=== PATIENT | male | born 1995 | race African-American/Black ===

== ENCOUNTER 2018-08-21 18:11 | Emergency (ER) | payer MEDICAID ==
[~2018-08-21] VITALS: Ht 170.2 cm; Wt 61.2 kg
[~2018-08-21 18:11] MED LIST: AMOXICILLIN500 MG ORAL; IBUPROFEN600 MG ORAL; NKM
[2018-08-21 18:30] VITALS: BP 101/64
[2018-08-21] MEDS ORDERED: Dicyclomine HCl 10mg/5ml oral soln ORAL ONE (19:00)
[2018-08-21] MEDS ORDERED: Mylanta II UD 30ml ORAL ONE (19:00)
[2018-08-21] MEDS ORDERED: Lidocaine 2% Visc 15ml soln ORAL ONE (19:00)
--- NOTE | 2018-08-21 19:04 | NUR ---
ED Nurse Note: Patient walked in to ER with friend due to N/V since 299 he drank alcohol. pt aao x4 and ambulatory. no N/V at this moment but pt c/o weakness due to vomiting since 299. skin clean and intact. calm and cooperative.
[2018-08-21] MEDS ORDERED: ONDANSETRON ODT4 MG BC (19:14)
[2018-08-21] MEDS ORDERED: RANITIDINE HCL150 MG ORAL (19:14)
[2018-08-21] MEDS ORDERED: DICYCLOMINE HCL10 MG ORAL (19:14)
[2018-08-21 19:19] VITALS: BP 124/78
--- NOTE | 2018-08-21 19:21 | NUR ---
ER DISCHARGE NOTE: Patient is cleared to be discharged per ERMD, pt is aox4, accompanied by girlfriend, on room air, with stable vital signs. pt was given dc and prescription instructions, pt was able to verbalize understanding, pt id band removed. pt is able to ambulate with steady gait. pt took all belongings.
--- NOTE | 2018-08-21 21:07 | Emergency Room Report ---
History of Present Illness General Chief Complaint: Nausea, Vomiting, and Diarrhea Source: Patient Present Illness HPI 22-year-old M presents ED for evaluation. Complaining of abdominal pain with vomiting and diarrhea which started early this morning. States he was drinking alcohol all day yesterday. Pain is cramping, 5 out of 10, nonradiating. Multiple episodes of vomiting and diarrhea. Denies any recent travel or recent antibiotic use. No other aggravating relieving factors. Denies any other associated symptoms Allergies: Coded Allergies: No Known Allergies (Unverified , 06/15/13) Patient History Past Medical History: none Past Surgical History: none Pertinent Family History: none Social History: Denies: smoking, alcohol use, drug use Immunizations: UTD Reviewed Nursing Documentation: PMH: Agreed; PSxH: Agreed Nursing Documentation-PMH Past Medical History: No Stated History Review of Systems All Other Systems: negative except mentioned in HPI Physical Exam Vital Signs Date Time Temp Pulse Resp B/P (MAP) Pulse Ox O2 Delivery O2 Flow Rate FiO2 08/21/18 18:29 99.5 61 18 96 Room Air 08/21/18 18:30 101/64 Sp02 EP Interpretation: reviewed, normal General Appearance: no apparent distress, alert, GCS 15, non-toxic Head: normocephalic, atraumatic Eyes: bilateral eye normal inspection, bilateral eye PERRL ENT: hearing grossly normal, normal pharynx, no angioedema, normal voice Neck: full range of motion, supple/symm/no masses Respiratory: chest non-tender, lungs clear, normal breath sounds, speaking full sentences Cardiovascular #1: regular rate, rhythm, no edema Cardiovascular #2: 2+ carotid (R), 2+ carotid (L), 2+ radial (R), 2+ radial (L) , 2+ dorsalis pedis (R), 2+ dorsalis pedis (L) Gastrointestinal: normal bowel sounds, non tender, soft, non-distended, no guarding, no rebound Rectal: deferred Genitourinary: normal inspection, no CVA tenderness Musculoskeletal: back normal, gait/station normal, normal range of motion, non- tender Neurologic: alert, oriented x3, responsive, motor strength/tone normal, sensory intact, speech normal Psychiatric: judgement/insight normal, memory normal, mood/affect normal, no suicidal/homicidal ideation Reflexes: 3+ bicep (R), 3+ bicep (L), 3+ tricep (R), 3+ tricep (L), 3+ knee (R) , 3+ knee (L) Skin: normal color, no rash, warm/dry, well hydrated Lymphatic: no adenopathy Medical Decision Making Diagnostic Impression: Primary Impression: Gastroenteritis ER Course Hospital Course 22-year-old M presents to ED with cramping abdominal pain with vomiting, diarrhea differential diagnosis: gastritis, SBO, cholecystits, gastroenteritis Clinical course Patient placed on stretcher. On awake overnight monitor. After initial history, physical exam reveals male in no acute distress. Abdomen otherwise soft. No guarding or rebound. Vital stable. Good capillary refill. No signs of clinical dehydration. Discussed findings with patient. I offered IV hydration but patient declined. Patient given ODT Zofran, GI cocktail and Pepcid by mouth On reassessment patient feels better. Safe for discharge close outpatient follow-up. We'll provide referrals I feel this is a highly complex case requiring extensive working including EKG/ Rhythm strip, Xray/CT/US, Blood/urine lab work, repeat exams while in ED, and administration of strong opiates/narcotics for pain control, admission to hospital or close patient follow up. Diagnosis - gastroenteritis Stable and discharged to home with prescriptions for Zantac, zofran, bentyl. Followup with PMD. Return to ED if symptoms recur or worsen Last Vital Signs Date Time Temp Pulse Resp B/P (MAP) Pulse Ox O2 Delivery O2 Flow Rate FiO2 08/21/18 19:19 99.0 74 18 124/78 98 Room Air Status: improved Disposition: HOME, SELF-CARE Condition: Stable Scripts Dicyclomine Hcl* (DICYCLOMINE HCL*) 10 Mg Capsule 10 MG ORAL QID, #20 CAP Prov: Sylvester Hoskins MD 08/21/18 Ondansetron Odt* (ZOFRAN ODT*) 4 Mg Tab.rapdis 4 MG BC EVERY 8 HOURS, #10 TAB 0 Refills Prov: Sylvester Hoskins MD 08/21/18 Ranitidine Hcl* (ZANTAC*) 150 Mg Tablet 150 MG ORAL TWICE A DAY, #30 TAB Prov: Sylvester Hoskins MD 08/21/18 Referrals: [facility] Patient Instructions: Viral Gastroenteritis, Adult, [id number] Sylvester Hoskins MD August 21, 2018 21:07
== END 2018-08-21 19:21 | disposition home or self-care (01) ==
LOC: EMR 18:50
DX: K52.9 Noninfective gastroenteritis and colitis, unspecified (principal)
CPT/HCPCS: 99283